=== PATIENT | female | born 1980 | race Caucasian/White ===

== ENCOUNTER 2017-07-18 23:16 | Emergency (ER) | payer OTHER ==
[2017-07-19 00:36] VITALS: BP 151/100; PULSE 81; TEMP 97.9; BMI 38.0
--- NOTE | 2017-07-19 00:58 | PDOC ---
History of Present Illness - General History Source: Patient Exam Limitations: No Limitations - History of Present Illness Initial Comments: 07/19/17 01:42 The patient is a 36-year-old female with a significant past medical history of congenital hip malformation s/p hip surgeries and chronic joint pain, and presents to the emergency department with right knee pain and swelling. She states she walked a lot today before the knee swelling occurred. She denies any acute trauma. She states she was referred to but has not seen a film masker yet. The patient denies chest pain, shortness of breath, headache and dizziness. The patient denies fever, chills, nausea, vomit, diarrhea and constipation. The patient denies dysuria, frequency, urgency and hematuria. Allergies: NKDA Past Surgical History: hip surgeries Social History: No toxic habits reported PCP: Dr. Sebas Lopez <Johana Corona - Last Filed: 07/19/17 01:41> <Amber Scruggs - Last Filed: 07/19/17 05:10> - General Chief Complaint: Pain, Acute Stated Complaint: JOINT PAIN Time Seen by Provider: 07/19/17 00:58 Past History <Johana Corona - Last Filed: 07/19/17 01:41> - Past Medical History Asthma: No Cancer: No Cardiac Disorders: No Diabetes: No HTN: No Seizures: No Thyroid Disease: No - Suicide/Smoking/Psychosocial Hx Smoking History: Never smoked Have you smoked in the past 12 months: No Information on smoking cessation initiated: No Hx Alcohol Use: No Drug/Substance Use Hx: No Hx Substance Use Treatment: No <Amber Scruggs - Last Filed: 07/19/17 05:10> - Past Medical History Allergies/Adverse Reactions: Allergies Allergy/AdvReac Type Severity Reaction Status Date / Time No Known Allergies Allergy Verified 07/19/17 00:34 Home Medications: Ambulatory Orders Acetaminophen [Tylenol .Regular Strength -] 650 mg PO Q3H PRN #1 tablet Ibuprofen [Motrin -] 600 mg PO Q4H PRN #1 tablet 04/02/14 Naproxen 250 mg PO BID #40 tablet 07/19/17 Review of Systems - Review of Systems Able to Perform ROS?: Yes Comments:: 07/19/17 01:42 GENERAL/CONSTITUTIONAL: No fever or chills. No weakness. HEAD, EYES, EARS, NOSE AND THROAT: No change in vision. No ear pain or discharge. No sore throat. CARDIOVASCULAR: No chest pain or shortness of breath. RESPIRATORY: No cough, wheezing, or hemoptysis. GASTROINTESTINAL: No nausea, vomiting, diarrhea or constipation. GENITOURINARY: No dysuria, frequency, or change in urination. MUSCULOSKELETAL: (+) Right knee swelling and pain. No neck or back pain. SKIN: No rash NEUROLOGIC: No headache, vertigo, loss of consciousness, or change in strength/ sensation. ENDOCRINE: No increased thirst. No abnormal weight change. HEMATOLOGIC/LYMPHATIC: No anemia, easy bleeding, or history of blood clots. ALLERGIC/IMMUNOLOGIC: No hives or skin allergy. <Johana Corona - Last Filed: 07/19/17 01:41> *Physical Exam - Vital Signs Last Vital Signs Temp Pulse Resp BP Pulse Ox 97.9 F 81 14 151/100 100 07/19/17 00:34 07/19/17 00:34 07/19/17 00:34 07/19/17 00:34 07/19/17 00:34 - Physical Exam Comments: 07/19/17 01:42 GENERAL: (+) Obese. Awake, alert, and fully oriented, in no acute distress HEAD: No signs of trauma EYES: PERRLA, EOMI, sclera anicteric, conjunctiva clear ENT: Auricles normal inspection, hearing grossly normal, nares patent, oropharynx clear without exudates. Moist mucosa NECK: Normal ROM, supple, no lymphadenopathy, JVD, or masses LUNGS: Breath sounds equal, clear to auscultation bilaterally. No wheezes, and no crackles HEART: Regular rate and rhythm, normal S1 and S2, no murmurs, rubs or gallops ABDOMEN: Soft, nontender, normoactive bowel sounds. No guarding, no rebound. No masses EXTREMITIES: Normal range of motion, no edema. No clubbing or cyanosis. No cords, erythema, or tenderness NEUROLOGICAL: Cranial nerves II through XII grossly intact. Normal speech SKIN: Warm, Dry, normal turgor, no rashes or lesions noted. <Johana Corona - Last Filed: 07/19/17 01:41> - Vital Signs Last Vital Signs Temp Pulse Resp BP Pulse Ox 97.9 F 81 14 151/100 100 07/19/17 00:34 07/19/17 00:34 07/19/17 00:34 07/19/17 00:34 07/19/17 00:34 <Amber Scruggs - Last Filed: 07/19/17 05:10> ED Treatment Course - LABORATORY CBC & Chemistry Diagram: 07/19/17 01:30 07/19/17 01:30 - ADDITIONAL ORDERS Additional order review: 07/19/17 01:30 RBC 3.94 MCV 88.1 MCHC 33.2 RDW 14.0 MPV 8.7 Neutrophils % 69.8 Lymphocytes % 20.5 D Monocytes % 8.2 Eosinophils % 0.7 Basophils % 0.8 - Medications Given in the ED: ED Medications Discontinued Medications Generic Name Dose Route Start Last Admin Trade Name Freq PRN Reason Stop Dose Admin Ibuprofen 600 mg 07/19/17 01:11 07/19/17 01:38 Motrin - PO 07/19/17 01:12 600 mg ONCE ONE Administration <Johana Corona - Last Filed: 07/19/17 01:41> - LABORATORY CBC & Chemistry Diagram: 07/19/17 01:30 07/19/17 01:30 <Amber Scruggs - Last Filed: 07/19/17 05:10> Medical Decision Making - Medical Decision Making 07/19/17 01:30 Pt comes with chronic joint pains. She states that she always has joint pains for years; States that today her right knee was hurting and she felt it was swollen. Her PMD is Dr. Lopez and he recommended that she go toa film masker, but she never looked one up and never went to see one. Pt will have basic blood tests casas today along with sed rate and crp; she will have a knee XRAY. Pt has been to pain management and they have been giving her percocets. I explained to her that I will not treat chronic pain with narcotics and prednisone, as she will get addicted. Motrin and tylenol only at this time. 07/19/17 02:04 Pt's WBC is elevated; likely due to chronic prednisone. 07/19/17 05:10 Knee XR is normal. Pt will be treated with NSAIDS. <Amber Scruggs - Last Filed: 07/19/17 05:10> *DC/Admit/Observation/Transfer - Attestations Scribe Attestion: 07/19/17 01:42 Documentation prepared by Johana Corona, acting as forensic medical examiner for Amber Scruggs MD. <Johana Corona - Last Filed: 07/19/17 01:41> - Discharge Dispostion Admit: No <Amber Scruggs - Last Filed: 07/19/17 05:10> Diagnosis at time of Disposition: Joint pain - Discharge Dispostion Disposition: HOME Condition at time of disposition: Stable - Prescriptions Prescriptions: Naproxen 250 mg PO BID #40 tablet - Referrals Referrals: Sebas Lopez [Primary Care Provider] - - Patient Instructions Printed Discharge Instructions: DI for Arthralgia
[2017-07-19] MEDS ORDERED: IBUPROFEN 600 MG TABLET (FP) PO ONE ×2 (01:11→01:35)
[2017-07-19 01:36] LABS: BASOPHIL 0.8 % (0-2.0); EOSINOPHIL 0.7 % (0-4.5); MCH 29.2 pg (25.7-33.7); MCHC 33.2 g/dl (32.0-36.0); MEAN CELL VOLUME 88.1 fl (80-96); MEAN PLT VOLUME 8.7 fl (7.5-11.1); NEUTROPHILS 69.8 % (42.8-82.8); PLATELET COUNT 372 K/MM3 (134-434); WHITE BLOOD COUNT 17.9 K/mm3 (4.0-10.0)
[2017-07-19 02:30] LABS: ALBUMIN 3.4 g/dl (3.4-5.0); ANION GAP 10 (8-16); CALCIUM 8.7 mg/dL (8.5-10.1); CO2 25 mmol/L (21-32); CREATININE 0.5 mg/dL (0.55-1.02); GLUCOSE,RANDOM 83 mg/dL (74-106); SGOT/AST 9 U/L (15-37); SGPT/ALT 15 U/L (12-78)
[2017-07-19 02:31] LABS: ALK PHOS 62 U/L (45-117); BILIRUBIN,TOTAL 0.5 mg/dL (0.2-1.0)
== END 2017-07-19 02:42 | disposition home or self-care (01) ==
LOC: JER 23:16
DX: M25.561 Pain in right knee (principal)
CPT/HCPCS: 36415; 73560-TC-RT; 80053; 85025; 85651; 86140; 99281-25